=== PATIENT | male | born 1980 ===

== ENCOUNTER 2018-01-28 09:08 | Emergency (ER) | payer OTHER, SELFPAY ==
[~2018-01-28 09:08] MED LIST: Sodium Chloride Irrig Solution 250 ML BOT ONE
--- NOTE | 2018-01-28 09:56 | RAD ---
THREE VIEWS OF THE RIGHT MIDDLE FINGER: DATE: 01/28/18. COMPARISON: None. HISTORY: Pain. FINDINGS: There is an obliquely oriented fracture through the base of the distal phalanx of the third digit. N o dislocation seen. Distal fracture fragment demonstrates mild volar angulation. IMPRESSION: Obliquely oriented fracture involving the third distal phalanx. POS: [facility]
[2018-01-28] MEDS ORDERED: Ibuprofen 800 MG TAB ONE (10:10)
[2018-01-28] MEDS ORDERED: Triple Antibiotic Oint 1 GM Packet ONE (10:10)
[2018-01-28] MEDS ORDERED: cefTRIAXone\\ROCEPHIN 1 GM VIAL ONE (11:13)
[2018-01-28] MEDS ORDERED: CEFAZOLIN 1 GM VIAL ONE (11:14)
[2018-01-28] MEDS ORDERED: Adacel (T-DAP) 0.5 ML VIAL ONE (11:26)
== END 2018-01-28 12:27 | disposition short-term general hospital (02) ==
LOC: MADERS 09:08
DX: S67.192A Crushing injury of right middle finger, initial encounter (principal); S62.632A Displaced fracture of distal phalanx of right middle finger, initial encounter for closed fracture; S61.212A Laceration without foreign body of right middle finger without damage to nail, initial encounter; Z23 Encounter for immunization; V68.5XXA Driver of heavy transport vehicle injured in noncollision transport accident in traffic accident, initial encounter
CPT/HCPCS: 12001; 90471; 90715; 96372; J0690; J0696; J2001